=== PATIENT | male | born 1955 | race African-American/Black ===

== ENCOUNTER 2023-03-20 09:42 | Inpatient (IN) | payer OTHER ==
[2023-03-20 10:06] VITALS: BMI 23.5
[2023-03-20] MEDS ORDERED: POLYETHYLENE GLYCOL (HEALTHYLAX) 3350 17 GM PACKET PO PRN (11:24)
[2023-03-20] MEDS ORDERED: ACETAMINOPHEN 325 MG TABLET (FP) PO PRN (11:24)
[2023-03-20] MEDS ORDERED: IBUPROFEN 400 MG TABLET (FP) PO PRN (11:24)
[2023-03-20] MEDS ORDERED: MAGNESIUM HYDROX 2400MG/30ML ORAL SUSPENSION 30 ML CUP PO PRN (11:24)
[2023-03-20] MEDS ORDERED: BISMUTH SUBSALICYLATE 524 MG/30 ML PO PRN (11:24)
[2023-03-20] MEDS ORDERED: NALOXONE HCL 0.4 MG/ML VIAL IM PRN (11:24)
[2023-03-20] MEDS ORDERED: BENZONATATE 200 MG CAPSULE PO PRN (11:24)
[2023-03-20] MEDS ORDERED: IBUPROFEN 600 MG TABLET (FP) PO PRN (11:24)
[2023-03-20] MEDS ORDERED: ONDANSETRON *ODT* 4 MG TABLET SL PRN (11:24)
[2023-03-20] MEDS ORDERED: NALOXONE HCL (KLOXXADO) 8 MG SPRAY NS PRN (11:24)
[2023-03-20] MEDS ORDERED: diazePAM 5 MG TABLET PO PRN (11:24)
[2023-03-20] MEDS ORDERED: DICYCLOMINE HCL 10 MG CAPSULE PO PRN (11:24)
[2023-03-20] MEDS ORDERED: MAG HYDROX/AL HYDROX/SIMETH 30 ML UNIT-DOSE CUP PO PRN (11:24)
[2023-03-20] MEDS ORDERED: guaiFENesin 600 MG TABLET.ER (FP) PO PRN (11:24)
[2023-03-20] MEDS ORDERED: METHOCARBAMOL 500 MG TABLET PO PRN (11:24)
[2023-03-20] MEDS ORDERED: NICOTINE 10 MG CARTRIDGE (INHALER) IH PRN (11:24)
[2023-03-20] MEDS ORDERED: BENZOCAINE/MENTHOL (CHLORASEPTIC ) LOZENGE MM PRN (11:24)
[2023-03-20] MEDS ORDERED: LOPERAMIDE HCL 2 MG CAPSULE PO PRN (11:24)
[2023-03-20] MEDS ORDERED: PRENATAL VITAMINS W/ FOLIC ACID TABLET (FP) PO SCH (11:30)
[2023-03-20] MEDS: PRENATAL VITAMINS W/ FOLIC ACID TABLET (FP) PO SCH (14:36)
[2023-03-20] MEDS: diazePAM 5 MG TABLET PO SCH ×2 (17:24→22:29)
[2023-03-20] MEDS: ACETAMINOPHEN 325 MG TABLET (FP) PO PRN (19:09)
[2023-03-20] MEDS: THIAMINE HCL 100 MG TABLET (FP) PO SCH (22:29)
[2023-03-20] MEDS: MELATONIN 5 MG TABLETS PO SCH (22:29)
[2023-03-21] MEDS: diazePAM 5 MG TABLET PO SCH ×4 (05:23→23:07)
[2023-03-21] MEDS: hydrOXYzine PAMOATE 25 MG CAPSULE (FP) PO PRN ×2 (05:24→17:10)
[2023-03-21] MEDS: ACETAMINOPHEN 325 MG TABLET (FP) PO PRN (05:25)
[2023-03-21] MEDS: amLODIPine BESYLATE 10 MG TABLET (FP) PO SCH (10:16)
[2023-03-21] MEDS: PRENATAL VITAMINS W/ FOLIC ACID TABLET (FP) PO SCH (10:16)
[2023-03-21 15:06] LABS: HEMATOCRIT 34.7 % (35.4-49); HEMOGLOBIN 11.8 GM/dL (11.7-16.9); MCH 30.7 pg (25.7-33.7); MEAN CELL VOLUME 90.3 fl (80-96); MEAN PLT VOLUME 8.7 fl (7.5-11.1); PLATELET COUNT 199 10^3/uL (134-434); RBC 3.85 M/mm3 (4.00-5.60); RDW 13.5 % (11.9-15.9); WHITE BLOOD COUNT 4.6 K/mm3 (4.0-10.0)
[2023-03-21 15:31] LABS: POTASSIUM 3.8 mmol/L (3.5-5.1)
[2023-03-21 15:33] LABS: CALCIUM 8.8 mg/dL (8.5-10.1)
[2023-03-21 15:34] LABS: ALBUMIN 3.2 g/dl (3.4-5.0)
[2023-03-21 15:37] LABS: BILIRUBIN,TOTAL 0.2 mg/dL (0.2-1); CREATININE 1.3 mg/dL (0.55-1.3); TOT PROT 6.2 g/dl (6.4-8.2)
[2023-03-21] MEDS: THIAMINE HCL 100 MG TABLET (FP) PO SCH (23:07)
[2023-03-21] MEDS: MELATONIN 5 MG TABLETS PO SCH (23:07)
[2023-03-22] MEDS: diazePAM 5 MG TABLET PO SCH ×3 (05:54→21:59)
[2023-03-22] MEDS: amLODIPine BESYLATE 10 MG TABLET (FP) PO SCH (10:06)
[2023-03-22] MEDS: PRENATAL VITAMINS W/ FOLIC ACID TABLET (FP) PO SCH (10:06)
[2023-03-22] MEDS: ACETAMINOPHEN 325 MG TABLET (FP) PO PRN ×2 (13:07→19:51)
[2023-03-22] MEDS: MELATONIN 5 MG TABLETS PO SCH (21:59)
[2023-03-22] MEDS: THIAMINE HCL 100 MG TABLET (FP) PO SCH (21:59)
[2023-03-23] MEDS: diazePAM 5 MG TABLET PO SCH ×2 (05:46→19:32)
[2023-03-23 09:56] LABS: POTASSIUM 4.2 mmol/L (3.5-5.1)
[2023-03-23] MEDS: PRENATAL VITAMINS W/ FOLIC ACID TABLET (FP) PO SCH (10:04)
[2023-03-23] MEDS: amLODIPine BESYLATE 10 MG TABLET (FP) PO SCH (10:05)
[2023-03-23 10:10] LABS: BLOOD UREA NITROGEN 16.2 mg/dL (7-18); CALCIUM 9.7 mg/dL (8.5-10.1)
[2023-03-23 10:14] LABS: CREATININE 1.4 mg/dL (0.55-1.3)
[2023-03-23] MEDS: hydrOXYzine PAMOATE 25 MG CAPSULE (FP) PO PRN (20:13)
[2023-03-23] MEDS: MELATONIN 5 MG TABLETS PO SCH (21:08)
[2023-03-23] MEDS: THIAMINE HCL 100 MG TABLET (FP) PO SCH (21:09)
[2023-03-24 05:56] VITALS: RESP 18
[2023-03-24] MEDS ORDERED: diazePAM 5 MG TABLET PO ONE (06:00)
[2023-03-24] MEDS: PRENATAL VITAMINS W/ FOLIC ACID TABLET (FP) PO SCH (09:08)
[2023-03-24] MEDS: amLODIPine BESYLATE 10 MG TABLET (FP) PO SCH (09:08)
[2023-03-24 09:26] VITALS: BP 154/89; PULSE 82; TEMP 98.3
== END 2023-03-24 09:25 | disposition home or self-care (01) | DRG 897 ==
LOC: YASAS 09:42 → Y6N 12:45
PROVIDERS: ADMIT Allergy & Immunology; ATTEND Surgery
PROC: HZ2ZZZZ Detoxification Services for Substance Abuse Treatment (ICD-10-PCS; principal; 2023-03-20)
DX: F10.230 Alcohol dependence with withdrawal, uncomplicated (principal); F14.20 Cocaine dependence, uncomplicated; E72.20 Disorder of urea cycle metabolism, unspecified; F17.210 Nicotine dependence, cigarettes, uncomplicated; E87.8 Other disorders of electrolyte and fluid balance, not elsewhere classified; E78.5 Hyperlipidemia, unspecified; I10 Essential (primary) hypertension; R79.89 Other specified abnormal findings of blood chemistry; R73.9 Hyperglycemia, unspecified; K21.9 Gastro-esophageal reflux disease without esophagitis
CPT/HCPCS: 36415; 71046-TC-FY; 80048; 80053; 82140; 83036; 85027; 86780; C9803-CS; U0003; U0005